=== PATIENT | male | born 1955 | race Caucasian/White ===

== ENCOUNTER 2019-01-17 06:41 | Day surgery (SDC) | payer OTHER ==
[~2019-01-17 06:41] MED LIST: AMLODIPINE BESYL5 MG PO; ATORVASTATIN CA40 MG PO; HYDROCHLOROTHIA25 MG PO; LISINOPRIL40 MG PO; METFORMIN HCL500 MG PO
[2019-01-17] MEDS ORDERED: PERCOCET 5-3251 EACH PO (09:44)
[2019-01-17] MEDS ORDERED: COLACE100 MG PO (09:44)
== END 2019-01-17 12:35 | disposition home or self-care (01) ==
LOC: CIR.AMB 06:41
DX: D12.9 Benign neoplasm of anus and anal canal (principal); K64.8 Other hemorrhoids; K64.4 Residual hemorrhoidal skin tags